=== PATIENT | male | born 1935 | race Caucasian/White ===

== ENCOUNTER 2024-10-16 22:42 | Inpatient (IN) | payer MEDICARE, BC ==
[~2024-10-16] VITALS: Ht 177.8 cm; Wt 85.7 kg
[2024-10-16] MEDS ORDERED: POTA10CA43 PO (22:59)
[2024-10-16] MEDS ORDERED: POLY17PO4 PO (22:59)
[2024-10-16] MEDS ORDERED: HYDR25TA4 PO (22:59)
[2024-10-16] MEDS ORDERED: LISI20TA30 PO (22:59)
[2024-10-16] MEDS ORDERED: ABIR250T PO (22:59)
[2024-10-16] MEDS ORDERED: FURO20TA4 PO (22:59)
[2024-10-16] MEDS ORDERED: IBUP-1955 PO (22:59)
[2024-10-16] MEDS ORDERED: DULO30CA2 PO (22:59)
[2024-10-16] MEDS ORDERED: CLOP75TA33 PO (22:59)
[2024-10-16] MEDS ORDERED: LEUP3.753 IM (22:59)
[2024-10-16] MEDS ORDERED: UBID10CA4 PO (22:59)
[2024-10-16] MEDS ORDERED: PRED-429 PO (22:59)
[2024-10-16] MEDS ORDERED: NIFE-34 PO (22:59)
[2024-10-16] MEDS ORDERED: SIMV-49 PO (22:59)
[2024-10-16] MEDS ORDERED: ACET-2154 PO (22:59)
[2024-10-16 23:03] LABS: BASOPHILS # (AUTO) 0.1 K/UL (0.0-0.2); BASOPHILS % (AUTO) 0.8 % (0.0-2.0); EOSINOPHILS # (AUTO) 0.5 K/uL (0.0-0.7); EOSINOPHILS % (AUTO) 4.3 % (0.0-7.0); HEMATOCRIT 38.6 % (36.7-47.1); LYMPHOCYTES # (AUTO) 1.1 K/uL (0.8-4.8); LYMPHOCYTES % (AUTO) 10.3 % (20.5-51.5); MEAN CORPUSCULAR HEMOGLOBIN 30.6 uug (23.8-33.4); MEAN CORPUSCULAR HGB CONC 34 g/dL (32.5-36.3); MEAN CORPUSCULAR VOLUME 90.6 fL (73.0-96.2); MONOCYTES # (AUTO) 0.9 K/uL (0.1-1.30); NEUTROPHILS # (AUTO) 8.4 K/uL (1.8-8.9); NEUTROPHILS % (AUTO) 76.6 % (38.5-71.5); PLATELET COUNT (AUTO) 207 K/uL (152-348); RED BLOOD CELL COUNT(AUTO) 4.27 MIL/uL (4.06-5.63); RED CELL DISTRIBUTION WIDTH 13.8 % (12.1-16.2)
[2024-10-16] MEDS: IV NORMAL SALINE 500 ML BAG IV ONE (23:25)
[2024-10-16 23:29] LABS: ALANINE AMINOTRANSFERASE 14 U/L (16-63); ALBUMIN 3.1 g/dL (3.4-5.0); ALKALINE PHOSPHATASE 142 U/L (50-136); ASPARTATE AMINOTRANSFERASE 19 U/L (15-37); BILIRUBIN,DIRECT 0.2 mg/dL (0.0-0.2); BILIRUBIN,TOTAL 0.9 mg/dL (0.2-1.0); CALCIUM 8.5 mg/dL (8.5-10.1); CARBON DIOXIDE 23 mmol/L (21-32); CHLORIDE 106 mmol/L (98-107); CREATININE 0.9 mg/dL (0.6-1.3); GLUCOSE 122 mg/dL (74-106); NT-PRO BNP 1990 pg/mL (0-125); POTASSIUM 3.8 mmol/L (3.5-5.1); SODIUM SERUM 142 mmol/L (136-145); TOTAL PROTEIN, SERUM 6.7 g/dL (6.4-8.2); UREA NITROGEN, BLOOD 13 mg/dL (7-18)
[2024-10-17] VITALS (7 sets, daily range): BP systolic 119–149; BP diastolic 80–90; TEMP 97–99.3; O2SAT 93–97
[2024-10-17] MEDS ORDERED: IOHEXOL 350 100 ML INFUS..BTL ONE (00:06)
[2024-10-17] MEDS ORDERED: REMEDY ESSENTIAL ZINC PASTE 113 GM TP PRN (03:00)
[2024-10-17] MEDS ORDERED: MIRALAX 17 GM POWD.PACK PO PRN (03:00)
[2024-10-17 07:11] LABS: BASOPHILS # (AUTO) 0.1 K/UL (0.0-0.2); BASOPHILS % (AUTO) 0.8 % (0.0-2.0); EOSINOPHILS # (AUTO) 0.6 K/uL (0.0-0.7); EOSINOPHILS % (AUTO) 5.4 % (0.0-7.0); HEMATOCRIT 37.1 % (36.7-47.1); HEMOGLOBIN 12.7 g/dL (12.5-16.3); LYMPHOCYTES # (AUTO) 0.9 K/uL (0.8-4.8); LYMPHOCYTES % (AUTO) 8.4 % (20.5-51.5); MEAN CORPUSCULAR HEMOGLOBIN 31.1 uug (23.8-33.4); MEAN CORPUSCULAR HGB CONC 34 g/dL (32.5-36.3); MONOCYTES # (AUTO) 0.9 K/uL (0.1-1.30); MONOCYTES % (AUTO) 8.8 % (0.0-11.0); NEUTROPHILS % (AUTO) 76.6 % (38.5-71.5); PLATELET COUNT (AUTO) 186 K/uL (152-348); RED BLOOD CELL COUNT(AUTO) 4.07 MIL/uL (4.06-5.63); RED CELL DISTRIBUTION WIDTH 14.1 % (12.1-16.2); WHITE BLOOD COUNT (AUTO) 10.4 K/uL (3.6-10.2)
[2024-10-17 07:22] LABS: DIFFERENTIAL COMMENT 1
[2024-10-17 07:27] LABS: CALCIUM 8.4 mg/dL (8.5-10.1); CARBON DIOXIDE 23 mmol/L (21-32); CHLORIDE 108 mmol/L (98-107); CREATININE 0.9 mg/dL (0.6-1.3); GLUCOSE 108 mg/dL (74-106); MAGNESIUM 2.1 mg/dL (1.8-2.4); PHOSPHOROUS 3.4 mg/dL (2.5-4.9); POTASSIUM 3.6 mmol/L (3.5-5.1); SODIUM SERUM 142 mmol/L (136-145); UREA NITROGEN, BLOOD 15 mg/dL (7-18)
[2024-10-17] MEDS ORDERED: DULOXETINE 30 MG CAPSULE.DR PO SCH ×2 (09:00)
[2024-10-17] MEDS ORDERED: CLOPIDOGREL 75 MG TABLET PO SCH ×2 (09:00)
[2024-10-17] MEDS ORDERED: HYDROCHLOROTHIAZIDE 25 MG TABLET PO SCH ×2 (09:00)
[2024-10-17] MEDS ORDERED: LISINOPRIL 20 MG TABLET PO SCH ×2 (09:00)
[2024-10-17] MEDS ORDERED: POTASSIUM CHLORIDE 10 MEQ TAB.PRT.SR PO SCH ×2 (09:00)
[2024-10-17] MEDS ORDERED: NIFEdipine XL 60 MG TABSR PO SCH ×2 (09:00)
[2024-10-17] MEDS ORDERED: UBIDECARENONE PO SCH (09:00)
[2024-10-17] MEDS: PANTOPRAZOLE SODIUM 40 MG VIAL IV SCH (09:07)
[2024-10-17] MEDS: FUROSEMIDE 20 MG/2 ML VIAL IV SCH (09:07)
[2024-10-17] MEDS: METOPROLOL TARTRATE 25 MG TABLET PO SCH (11:00)
[2024-10-17] MEDS: NITROGLYCERIN 0.4 MG/TAB BOTTLE SL PRN (11:19)
[2024-10-17] MEDS: ENOXAPARIN SODIUM 60 MG/0.6 ML DISP.SYRIN SQ SCH (11:31)
[2024-10-17] MEDS ORDERED: APIX2.5T PO (14:13)
[2024-10-17] MEDS ORDERED: PANT20TA2 PO (14:13)
[2024-10-17] MEDS ORDERED: DULO60CA64 PO (14:13)
[2024-10-17] MEDS ORDERED: LATA2.5D15 EACHEYE (14:13)
[2024-10-17] MEDS: POTASSIUM CHLORIDE 10 MEQ TAB.PRT.SR PO SCH (16:50)
[2024-10-17 17:33] LABS: THYROID STIMULATING HORMONE 1.415 mIU/mL (0.358-3.740)
[2024-10-17] MEDS: ACETAMINOPHEN 325 MG TABLET PO PRN (17:33)
[2024-10-17] MEDS: ONDANSETRON 4 MG/2 ML VIAL IV PRN (20:42)
[2024-10-17] MEDS: SIMVASTATIN 40 MG TABLET PO SCH (21:08)
[2024-10-17] MEDS: APIXABAN 2.5 MG TABLET PO SCH (21:08)
[2024-10-17] MEDS: LATANOPROST OPHT DROP 2.5 ML BOTTLE EACHEYE SCH (21:18)
[2024-10-17] MEDS: HYDROCODONE/APAP 5-325MG TABLET PO PRN (22:41)
[2024-10-18] VITALS (7 sets, daily range): BP systolic 109–150; BP diastolic 62–79; TEMP 97–98.1; O2SAT 92–100
[2024-10-18] MEDS ORDERED: LEVALBUTEROL HCL NEB 0.63 MG/3 ML NEBU NEB PRN (07:30)
[2024-10-18 08:27] LABS: BASOPHILS # (AUTO) 0.1 K/UL (0.0-0.2); BASOPHILS % (AUTO) 0.6 % (0.0-2.0); EOSINOPHILS # (AUTO) 0.9 K/uL (0.0-0.7); EOSINOPHILS % (AUTO) 6.7 % (0.0-7.0); HEMATOCRIT 35.9 % (36.7-47.1); HEMOGLOBIN 12.1 g/dL (12.5-16.3); LYMPHOCYTES % (AUTO) 7.6 % (20.5-51.5); MEAN CORPUSCULAR HEMOGLOBIN 30.7 uug (23.8-33.4); MEAN CORPUSCULAR HGB CONC 34 g/dL (32.5-36.3); MONOCYTES # (AUTO) 1.2 K/uL (0.1-1.30); MONOCYTES % (AUTO) 9.4 % (0.0-11.0); NEUTROPHILS # (AUTO) 9.6 K/uL (1.8-8.9); NEUTROPHILS % (AUTO) 75.7 % (38.5-71.5); PLATELET COUNT (AUTO) 206 K/uL (152-348); RED BLOOD CELL COUNT(AUTO) 3.95 MIL/uL (4.06-5.63); RED CELL DISTRIBUTION WIDTH 14.1 % (12.1-16.2); WHITE BLOOD COUNT (AUTO) 12.7 K/uL (3.6-10.2)
[2024-10-18 08:49] LABS: DIFFERENTIAL COMMENT 1
[2024-10-18 08:51] LABS: CALCIUM 8.4 mg/dL (8.5-10.1); CARBON DIOXIDE 22 mmol/L (21-32); CHLORIDE 107 mmol/L (98-107); CREATININE 1.2 mg/dL (0.6-1.3); GLUCOSE 105 mg/dL (74-106); POTASSIUM 3.5 mmol/L (3.5-5.1); SODIUM SERUM 143 mmol/L (136-145); UREA NITROGEN, BLOOD 20 mg/dL (7-18)
[2024-10-18 08:57] LABS: ALANINE AMINOTRANSFERASE 9 U/L (16-63); ALBUMIN 2.7 g/dL (3.4-5.0); ALKALINE PHOSPHATASE 123 U/L (50-136); ASPARTATE AMINOTRANSFERASE 19 U/L (15-37); BILIRUBIN,TOTAL 0.9 mg/dL (0.2-1.0); MAGNESIUM 2.2 mg/dL (1.8-2.4); PHOSPHOROUS 3.8 mg/dL (2.5-4.9); TOTAL PROTEIN, SERUM 6.2 g/dL (6.4-8.2)
[2024-10-18] MEDS: DULOXETINE 60 MG CAPSULE.DR PO SCH (09:01)
[2024-10-18] MEDS: ENSURE ENLIVE (VAN) 240 ML LIQUID PO SCH (09:01)
[2024-10-18] MEDS: predniSONE 5 MG TABLET PO SCH (12:15)
[2024-10-18] MEDS: ABIRATERONE ACETATE 250 MG PO SCH (12:16)
[2024-10-18] MEDS ORDERED: CEFTRIAXONE 2 G VIAL IM SCH (14:15)
[2024-10-18] MEDS: LIDOCAINE 5% PATCH TD SCH (14:58)
[2024-10-18] MEDS: AZITHROMYCIN 250 MG TABLET PO SCH (14:59)
[2024-10-18] MEDS: CEFTRIAXONE 2 G in IV DEXTROSE 5% 100 ML IV SCH (15:34)
[2024-10-18 15:41] LABS: HIV-1/2 ANTIBODY NON REACTIVE (NONREACTIVE)
[2024-10-18 15:42] LABS: HIV-1 p24 ANTIGEN NON REACTIVE (NONREACTIVE)
[2024-10-18] MEDS: MORPHINE SULFATE 2 MG/1 ML DISP.SYRIN IV PRN (22:33)
[2024-10-19] VITALS (7 sets, daily range): BP systolic 105–145; BP diastolic 63–86; TEMP 96.9–99; O2SAT 94–97
[2024-10-19 07:42] LABS: BASOPHILS # (AUTO) 0.1 K/UL (0.0-0.2); BASOPHILS % (AUTO) 0.4 % (0.0-2.0); EOSINOPHILS # (AUTO) 0.7 K/uL (0.0-0.7); EOSINOPHILS % (AUTO) 4.7 % (0.0-7.0); HEMATOCRIT 36.9 % (36.7-47.1); HEMOGLOBIN 12.4 g/dL (12.5-16.3); LYMPHOCYTES # (AUTO) 0.7 K/uL (0.8-4.8); LYMPHOCYTES % (AUTO) 4.6 % (20.5-51.5); MEAN CORPUSCULAR HEMOGLOBIN 30.3 uug (23.8-33.4); MEAN CORPUSCULAR HGB CONC 34 g/dL (32.5-36.3); MEAN CORPUSCULAR VOLUME 90.5 fL (73.0-96.2); MONOCYTES # (AUTO) 1.1 K/uL (0.1-1.30); MONOCYTES % (AUTO) 7.4 % (0.0-11.0); NEUTROPHILS # (AUTO) 12.3 K/uL (1.8-8.9); NEUTROPHILS % (AUTO) 82.9 % (38.5-71.5); PLATELET COUNT (AUTO) 196 K/uL (152-348); RED BLOOD CELL COUNT(AUTO) 4.08 MIL/uL (4.06-5.63); RED CELL DISTRIBUTION WIDTH 14.2 % (12.1-16.2); WHITE BLOOD COUNT (AUTO) 14.8 K/uL (3.6-10.2)
[2024-10-19 07:56] LABS: CALCIUM 8.4 mg/dL (8.5-10.1); CARBON DIOXIDE 23 mmol/L (21-32); CHLORIDE 106 mmol/L (98-107); CREATININE 1.3 mg/dL (0.6-1.3); GLUCOSE 148 mg/dL (74-106); MAGNESIUM 2.1 mg/dL (1.8-2.4); POTASSIUM 3.4 mmol/L (3.5-5.1); SODIUM SERUM 142 mmol/L (136-145); UREA NITROGEN, BLOOD 25 mg/dL (7-18)
[2024-10-19 07:59] LABS: DIFFERENTIAL COMMENT 1
[2024-10-19] MEDS: POTASSIUM CHLORIDE 20 MEQ TAB.PRT.SR PO ONE (11:19)
[2024-10-19 17:38] LABS: *BILIRUBIN,URIN 1+ (NEGATIVE); *BLOOD, URINE NEGATIVE (NEGATIVE); *CLARITY,URINE CLEAR (CLEAR); *COLOR,URINE YELLOW (YELLOW); *KETONES,URINE TRACE (NEGATIVE); *PROTEIN,URINE 1+ (NEGATIVE); LEUKOCYTE ESTERASE ,URINE NEGATIVE (NEGATIVE); NITRITE, URINE NEGATIVE (NEGATIVE); PH,URINE 5.5 (5.0-8.0); UGLUCOSE NEGATIVE (NEGATIVE)
[2024-10-19 18:11] LABS: BACTERIA,URINE FEW /HPF (NONE SEEN); RBC,URINE NONE SEEN /HPF (0-3); SQUAMOUS EPITHELIAL CELL,UR FEW /HPF (NONE SEEN); WBC,URINE 0-3 /HPF (0-3)
[2024-10-19] MEDS: MAGNESIUM HYDROXIDE 30 ML LIQUID UDC PO PRN (20:12)
[2024-10-20] VITALS (8 sets, daily range): BP systolic 105–139; BP diastolic 62–79; TEMP 96.7–98.3; O2SAT 92–97
[2024-10-20] MEDS: PANTOPRAZOLE SODIUM 40 MG TABLET.DR PO SCH (06:11)
[2024-10-20 06:57] LABS: BASOPHILS % (AUTO) 0.2 % (0.0-2.0); EOSINOPHILS # (AUTO) 0.9 K/uL (0.0-0.7); EOSINOPHILS % (AUTO) 8.4 % (0.0-7.0); HEMOGLOBIN 12.1 g/dL (12.5-16.3); LYMPHOCYTES # (AUTO) 0.8 K/uL (0.8-4.8); LYMPHOCYTES % (AUTO) 6.7 % (20.5-51.5); MEAN CORPUSCULAR HEMOGLOBIN 31.2 uug (23.8-33.4); MEAN CORPUSCULAR HGB CONC 35 g/dL (32.5-36.3); MEAN CORPUSCULAR VOLUME 90.4 fL (73.0-96.2); MONOCYTES # (AUTO) 1.2 K/uL (0.1-1.30); MONOCYTES % (AUTO) 10.5 % (0.0-11.0); NEUTROPHILS # (AUTO) 8.3 K/uL (1.8-8.9); NEUTROPHILS % (AUTO) 74.2 % (38.5-71.5); PLATELET COUNT (AUTO) 197 K/uL (152-348); RED BLOOD CELL COUNT(AUTO) 3.87 MIL/uL (4.06-5.63); RED CELL DISTRIBUTION WIDTH 14.3 % (12.1-16.2); WHITE BLOOD COUNT (AUTO) 11.2 K/uL (3.6-10.2)
[2024-10-20 07:14] LABS: DIFFERENTIAL COMMENT 1
[2024-10-20 07:38] LABS: CALCIUM 8.3 mg/dL (8.5-10.1); CARBON DIOXIDE 24 mmol/L (21-32); CHLORIDE 109 mmol/L (98-107); CREATININE 1.4 mg/dL (0.6-1.3); GLUCOSE 132 mg/dL (74-106); MAGNESIUM 2.5 mg/dL (1.8-2.4); PHOSPHOROUS 3.8 mg/dL (2.5-4.9); POTASSIUM 3.7 mmol/L (3.5-5.1); SODIUM SERUM 146 mmol/L (136-145); UREA NITROGEN, BLOOD 35 mg/dL (7-18)
[2024-10-20] MEDS: IV LACTATED RINGERS SOLUTION 1,000 ML IV SCH (20:55)
[2024-10-20] MEDS ORDERED: MUPIROCIN 2% OINT 22 GM TUBE NS SCH (21:00)
[2024-10-20] MEDS: MUPIROCIN 2% OINT 22 GM TUBE NS SCH (21:08)
[2024-10-21 02:06] LABS: HEPATITIS B SURFACE AB, QUAL Non Reactive (.); HEPATITIS B SURFACE AG Negative (Negative); HEPATITIS C VIRUS ANTIBODY Non Reactive (Non Reactive)
[2024-10-21 04:00] VITALS: TEMP 98.1
[2024-10-21] MEDS: LORAZEPAM 0.5 MG TABLET PO ONE (04:53)
[2024-10-21] MEDS ORDERED: LORAZEPAM 2 MG/1 ML VIAL IV ONE (05:00)
[2024-10-21 06:56] LABS: BASOPHILS % (AUTO) 0.4 % (0.0-2.0); HEMATOCRIT 29.1 % (36.7-47.1); HEMOGLOBIN 10.3 g/dL (12.5-16.3); LYMPHOCYTES # (AUTO) 0.7 K/uL (0.8-4.8); LYMPHOCYTES % (AUTO) 6.8 % (20.5-51.5); MEAN CORPUSCULAR HEMOGLOBIN 31.5 uug (23.8-33.4); MEAN CORPUSCULAR HGB CONC 36 g/dL (32.5-36.3); MEAN CORPUSCULAR VOLUME 88.6 fL (73.0-96.2); MONOCYTES # (AUTO) 1.1 K/uL (0.1-1.30); MONOCYTES % (AUTO) 10.6 % (0.0-11.0); NEUTROPHILS # (AUTO) 7.9 K/uL (1.8-8.9); NEUTROPHILS % (AUTO) 73.2 % (38.5-71.5); PLATELET COUNT (AUTO) 179 K/uL (152-348); RED BLOOD CELL COUNT(AUTO) 3.28 MIL/uL (4.06-5.63); WHITE BLOOD COUNT (AUTO) 10.8 K/uL (3.6-10.2)
[2024-10-21 07:10] LABS: CALCIUM 8.2 mg/dL (8.5-10.1); CARBON DIOXIDE 25 mmol/L (21-32); CHLORIDE 111 mmol/L (98-107); CREATININE 1.2 mg/dL (0.6-1.3); GLUCOSE 133 mg/dL (74-106); MAGNESIUM 2.3 mg/dL (1.8-2.4); PHOSPHOROUS 2.1 mg/dL (2.5-4.9); POTASSIUM 3.5 mmol/L (3.5-5.1); SODIUM SERUM 146 mmol/L (136-145); UREA NITROGEN, BLOOD 34 mg/dL (7-18)
[2024-10-21 08:00] VITALS: BP 145/58; TEMP 97.6; O2SAT 97
[2024-10-21] MEDS: DOXYCYCLINE HYCLATE 100 MG TABLET PO SCH (08:26)
[2024-10-21 08:29] LABS: DIFFERENTIAL COMMENT 1
[2024-10-21] MEDS: POTASSIUM PHOSPHATE MM 15 MMOL in IV NORMAL SALINE 250 ML IV ONE (11:44)
[2024-10-21 15:42] VITALS: BP 118/68; TEMP 98.2; O2SAT 98
[2024-10-21 20:20] VITALS: BP 121/86; TEMP 98; O2SAT 96
[2024-10-21] MEDS: ENOXAPARIN SODIUM 40 MG/0.4 ML DISP.SYRIN SQ SCH (21:00)
[2024-10-22 00:06] VITALS: BP 132/77; TEMP 98; O2SAT 93
[2024-10-22] MEDS: IV LACTATED RINGERS SOLUTION 1,000 ML IV PRN (03:51)
[2024-10-22 04:03] VITALS: BP 130/70; TEMP 98.2; O2SAT 95
[2024-10-22 07:05] LABS: BASOPHILS # (AUTO) 0.1 K/UL (0.0-0.2); BASOPHILS % (AUTO) 0.6 % (0.0-2.0); EOSINOPHILS # (AUTO) 1.1 K/uL (0.0-0.7); EOSINOPHILS % (AUTO) 11.8 % (0.0-7.0); HEMATOCRIT 29.1 % (36.7-47.1); HEMOGLOBIN 9.9 g/dL (12.5-16.3); LYMPHOCYTES # (AUTO) 1.1 K/uL (0.8-4.8); MEAN CORPUSCULAR HEMOGLOBIN 30.8 uug (23.8-33.4); MEAN CORPUSCULAR HGB CONC 34 g/dL (32.5-36.3); MEAN CORPUSCULAR VOLUME 90.7 fL (73.0-96.2); MONOCYTES # (AUTO) 1.1 K/uL (0.1-1.30); MONOCYTES % (AUTO) 12.5 % (0.0-11.0); NEUTROPHILS # (AUTO) 5.7 K/uL (1.8-8.9); NEUTROPHILS % (AUTO) 63.1 % (38.5-71.5); PLATELET COUNT (AUTO) 173 K/uL (152-348); RED BLOOD CELL COUNT(AUTO) 3.21 MIL/uL (4.06-5.63); RED CELL DISTRIBUTION WIDTH 14.4 % (12.1-16.2)
[2024-10-22 07:18] LABS: DIFFERENTIAL COMMENT 1
[2024-10-22 07:23] LABS: CALCIUM 8.5 mg/dL (8.5-10.1); CARBON DIOXIDE 26 mmol/L (21-32); CHLORIDE 113 mmol/L (98-107); CREATININE 1.2 mg/dL (0.6-1.3); GLUCOSE 110 mg/dL (74-106); POTASSIUM 3.7 mmol/L (3.5-5.1); SODIUM SERUM 148 mmol/L (136-145); UREA NITROGEN, BLOOD 25 mg/dL (7-18)
[2024-10-22 07:55] VITALS: BP 125/65; TEMP 97.8
[2024-10-22 08:25] LABS: MAGNESIUM 2.3 mg/dL (1.8-2.4); PHOSPHOROUS 2.6 mg/dL (2.5-4.9)
[2024-10-22 15:50] VITALS: BP 128/60; TEMP 98
[2024-10-22] MEDS: HYDROCORTISONE SOD SUCCINATE 100 MG/2 ML VIAL IV SCH (16:27)
[2024-10-22] MEDS: ENSURE ENLIVE (VAN) 240 ML LIQUID PO SCH (16:40)
[2024-10-22 22:02] VITALS: BP 138/68; TEMP 98; O2SAT 100
[2024-10-23 07:29] LABS: BASOPHILS % (AUTO) 0.3 % (0.0-2.0); EOSINOPHILS % (AUTO) 0.5 % (0.0-7.0); HEMATOCRIT 27.5 % (36.7-47.1); HEMOGLOBIN 9.6 g/dL (12.5-16.3); LYMPHOCYTES # (AUTO) 0.9 K/uL (0.8-4.8); LYMPHOCYTES % (AUTO) 12.5 % (20.5-51.5); MEAN CORPUSCULAR HEMOGLOBIN 31.8 uug (23.8-33.4); MEAN CORPUSCULAR HGB CONC 35 g/dL (32.5-36.3); MEAN CORPUSCULAR VOLUME 91.1 fL (73.0-96.2); MONOCYTES # (AUTO) 0.9 K/uL (0.1-1.30); MONOCYTES % (AUTO) 11.9 % (0.0-11.0); NEUTROPHILS # (AUTO) 5.6 K/uL (1.8-8.9); NEUTROPHILS % (AUTO) 74.8 % (38.5-71.5); PLATELET COUNT (AUTO) 191 K/uL (152-348); RED BLOOD CELL COUNT(AUTO) 3.02 MIL/uL (4.06-5.63); RED CELL DISTRIBUTION WIDTH 14.3 % (12.1-16.2); WHITE BLOOD COUNT (AUTO) 7.5 K/uL (3.6-10.2)
[2024-10-23 07:33] VITALS: BP 139/92; TEMP 97.9; O2SAT 95
[2024-10-23 07:43] LABS: DIFFERENTIAL COMMENT 1
[2024-10-23 08:00] LABS: CALCIUM 8.6 mg/dL (8.5-10.1); CARBON DIOXIDE 24 mmol/L (21-32); CHLORIDE 109 mmol/L (98-107); CREATININE 1.1 mg/dL (0.6-1.3); GLUCOSE 121 mg/dL (74-106); POTASSIUM 3.6 mmol/L (3.5-5.1); SODIUM SERUM 144 mmol/L (136-145); UREA NITROGEN, BLOOD 21 mg/dL (7-18)
[2024-10-23 11:40] VITALS: BP 119/59; TEMP 97.8; O2SAT 95
[2024-10-23 12:10] LABS: ADENOVIRUS Not Detected (Not Detected); CORONAVIRUS 229E Not Detected (Not Detected); CORONAVIRUS HKU1 Not Detected (Not Detected); CORONAVIRUS NL63 Not Detected (Not Detected); CORONAVIRUS OC43 Not Detected (Not Detected); NP BORDETELLA PERTUSIS Not Detected (Not Detected); NP CHLAMYDOPHILA PNEUMONIAE Not Detected (Not Detected); NP HUMAN METAPNEUMOVIRUS Not Detected (Not Detected); NP HUMAN RHINO/ENTERO VIRUS Not Detected (Not Detected); NP INFLUENZA A Not Detected (Not Detected); NP INFLUENZA A/H1 Not Detected (Not Detected); NP INFLUENZA A/H1-2009 Not Detected (Not Detected); NP INFLUENZA A/H3 Not Detected (Not Detected); NP INFLUENZA B Not Detected (Not Detected); NP MYCOPLASMA PNEUMONIAE Not Detected (Not Detected); NP PARAINFLUENZA 1 Not Detected (Not Detected); NP PARAINFLUENZA 2 Not Detected (Not Detected); NP PARAINFLUENZA 3 Not Detected (Not Detected); NP PARAINFLUENZA 4 Not Detected (Not Detected); NP RESPIRATORY SYNCYTIAL VIRUS Not Detected (Not Detected)
[2024-10-23] MEDS: HYDROCORTISONE SOD SUCCINATE 100 MG/2 ML VIAL IV SCH (13:59)
[2024-10-23 15:40] VITALS: BP 146/75; TEMP 97.9; O2SAT 98
[2024-10-23 19:38] VITALS: BP 159/94; TEMP 97.6; O2SAT 94
[2024-10-24] VITALS (7 sets, daily range): BP systolic 113–182; BP diastolic 76–93; TEMP 96.6–98.6; O2SAT 93–100
[2024-10-24 07:43] LABS: BASOPHILS % (AUTO) 0.2 % (0.0-2.0); EOSINOPHILS % (AUTO) 0.2 % (0.0-7.0); HEMATOCRIT 29.2 % (36.7-47.1); HEMOGLOBIN 9.8 g/dL (12.5-16.3); LYMPHOCYTES # (AUTO) 1.5 K/uL (0.8-4.8); LYMPHOCYTES % (AUTO) 13.6 % (20.5-51.5); MEAN CORPUSCULAR HGB CONC 34 g/dL (32.5-36.3); MEAN CORPUSCULAR VOLUME 91.9 fL (73.0-96.2); MONOCYTES # (AUTO) 1.4 K/uL (0.1-1.30); MONOCYTES % (AUTO) 12.8 % (0.0-11.0); NEUTROPHILS # (AUTO) 8.3 K/uL (1.8-8.9); NEUTROPHILS % (AUTO) 73.2 % (38.5-71.5); PLATELET COUNT (AUTO) 225 K/uL (152-348); RED BLOOD CELL COUNT(AUTO) 3.18 MIL/uL (4.06-5.63); RED CELL DISTRIBUTION WIDTH 14.5 % (12.1-16.2); WHITE BLOOD COUNT (AUTO) 11.3 K/uL (3.6-10.2)
[2024-10-24 07:57] LABS: CALCIUM 8.6 mg/dL (8.5-10.1); CARBON DIOXIDE 25 mmol/L (21-32); CHLORIDE 113 mmol/L (98-107); GLUCOSE 131 mg/dL (74-106); SODIUM SERUM 149 mmol/L (136-145); UREA NITROGEN, BLOOD 23 mg/dL (7-18)
[2024-10-24 07:59] LABS: DIFFERENTIAL COMMENT 1
[2024-10-24] MEDS: TRAMADOL HCL 50 MG TABLET PO PRN (08:51)
[2024-10-24] MEDS: CLONIDINE HCL 0.1 MG TABLET PO PRN (14:05)
[2024-10-24] MEDS: IV 1/2NS 1000 ML 1,000 ML IV SCH (23:36)
[2024-10-25] VITALS: TEMP 97
[2024-10-25 05:59] LABS: ABG BASE EXCESS -6.3 mmol/L (-2.0-3.0); ABG HCO3 18.1 mmol/L (21.0-28.0); ABG PCO2 32.1 mmHg (35.0-48.0); ABG PO2 82.1 mmHg (83.0-108.0); ABG SITE RIGHT BRACHIAL; ABG TOTAL HEMOGLOBIN 10.1 G/dL (13.5-17.5); COHb 0.3 % (0.5-1.5); O2Hb 94.2 % (94.0-98.0)
[2024-10-25 06:07] VITALS: O2SAT 97
[2024-10-25 06:40] LABS: BASOPHILS % (AUTO) 0.2 % (0.0-2.0); HEMATOCRIT 26.9 % (36.7-47.1); HEMOGLOBIN 9.3 g/dL (12.5-16.3); LYMPHOCYTES # (AUTO) 0.8 K/uL (0.8-4.8); LYMPHOCYTES % (AUTO) 6.1 % (20.5-51.5); MEAN CORPUSCULAR HEMOGLOBIN 31.5 uug (23.8-33.4); MEAN CORPUSCULAR HGB CONC 35 g/dL (32.5-36.3); MONOCYTES # (AUTO) 1.4 K/uL (0.1-1.30); NEUTROPHILS # (AUTO) 10.7 K/uL (1.8-8.9); NEUTROPHILS % (AUTO) 82.7 % (38.5-71.5); PLATELET COUNT (AUTO) 212 K/uL (152-348); RED BLOOD CELL COUNT(AUTO) 2.96 MIL/uL (4.06-5.63); RED CELL DISTRIBUTION WIDTH 14.5 % (12.1-16.2); WHITE BLOOD COUNT (AUTO) 12.9 K/uL (3.6-10.2)
[2024-10-25 06:43] LABS: DIFFERENTIAL COMMENT 1
[2024-10-25 06:52] LABS: CALCIUM 8.4 mg/dL (8.5-10.1); CARBON DIOXIDE 26 mmol/L (21-32); CHLORIDE 113 mmol/L (98-107); CREATININE 1.1 mg/dL (0.6-1.3); GLUCOSE 113 mg/dL (74-106); MAGNESIUM 2.2 mg/dL (1.8-2.4); PHOSPHOROUS 3.6 mg/dL (2.5-4.9); POTASSIUM 3.8 mmol/L (3.5-5.1); SODIUM SERUM 149 mmol/L (136-145); UREA NITROGEN, BLOOD 24 mg/dL (7-18)
[2024-10-25 09:00] VITALS: BP 141/93; TEMP 98.2; O2SAT 98
[2024-10-25 12:00] VITALS: BP 134/86; TEMP 97.9; O2SAT 97
[2024-10-25 16:00] VITALS: BP 128/81; TEMP 97.4; O2SAT 95
[2024-10-25] MEDS: MORPHINE SULFATE 4 MG/1 ML DISP.SYRIN IV PRN (16:33)
[2024-10-25] MEDS: LORAZEPAM 2 MG/1 ML VIAL IV ONE (18:21)
[2024-10-25] MEDS: MORPHINE SULFATE 2 MG/1 ML DISP.SYRIN IV ONE (18:21)
[2024-10-25] MEDS: MORPHINE SULFATE PF IV DRIP 100 MG in IV DEXTROSE 5% 96 ML IV PRN (18:47)
[2024-10-25] MEDS: LORAZEPAM 2 MG/1 ML VIAL IV PRN (21:45)
[2024-10-26 04:46] VITALS: O2SAT 94
[2024-10-26 10:00] VITALS: O2SAT 96
[2024-10-27 05:28] VITALS: O2SAT 96
[2024-10-27 11:37] VITALS: BP 159/84; TEMP 97.8; O2SAT 97
[2024-10-27 11:46] VITALS: BP 120/61; TEMP 98.2; O2SAT 98
[2024-10-27] MEDS: LORAZEPAM 2 MG/1 ML VIAL IV SCH (11:47)
[2024-10-27] MEDS: MORPHINE SULFATE PF IV DRIP 100 MG in IV DEXTROSE 5% 96 ML IV PRN (18:16)
== END 2024-10-27 22:25 | DRG 177 ==
LOC: ER 22:56 → MEDSURG3 10-17 02:48 → TELE3 10-17 08:35 → MEDSURG3 10-25 18:00
PROVIDERS: ATTEND Internal Medicine
DX: J69.0 Pneumonitis due to inhalation of food and vomit (principal); G93.41 Metabolic encephalopathy; J96.01 Acute respiratory failure with hypoxia; J90 Pleural effusion, not elsewhere classified; D68.59 Other primary thrombophilia; E44.1 Mild protein-calorie malnutrition; I50.32 Chronic diastolic (congestive) heart failure; E44.0 Moderate protein-calorie malnutrition; E27.40 Unspecified adrenocortical insufficiency; C79.9 Secondary malignant neoplasm of unspecified site; F03.93 Unspecified dementia, unspecified severity, with mood disturbance; N17.9 Acute kidney failure, unspecified; M84.48XA Pathological fracture, other site, initial encounter for fracture; E87.0 Hyperosmolality and hypernatremia; Z51.5 Encounter for palliative care; Z66 Do not resuscitate; I11.0 Hypertensive heart disease with heart failure; I48.0 Paroxysmal atrial fibrillation; Z85.46 Personal history of malignant neoplasm of prostate; K21.9 Gastro-esophageal reflux disease without esophagitis; H40.9 Unspecified glaucoma; E88.09 Other disorders of plasma-protein metabolism, not elsewhere classified; W19.XXXA Unspecified fall, initial encounter; Y92.89 Other specified places as the place of occurrence of the external cause; E78.5 Hyperlipidemia, unspecified; R13.10 Dysphagia, unspecified; C61 Malignant neoplasm of prostate; F32.A Depression, unspecified; R62.7 Adult failure to thrive; Z53.20 Procedure and treatment not carried out because of patient's decision for unspecified reasons; Z78.1 Physical restraint status; Z79.01 Long term (current) use of anticoagulants; Z79.52 Long term (current) use of systemic steroids; Z79.02 Long term (current) use of antithrombotics/antiplatelets
CPT/HCPCS: 36415; 36600; 70450; 71045; 71275; 74018; 82533; 83605; 83690; 83735; 84100; 84443; 84484; 85025; 85610; 86706; 86803; 87040; 87340; 87806; 93005; 93307; A4663; A6209; A6213; C1758; G0378; J0696; J1650; J1720; J1940; J2060; J2270; J2274; J2405; J2470; J3490; J7040; J7120; J7512; Q0144; Q9967